=== PATIENT | male | born 1995 | race Two or more races ===

== ENCOUNTER 2023-02-10 21:03 | Emergency (ER) | payer OTHER ==
[2023-02-10 21:10] VITALS: BP 140/88; O2SAT 98
--- NOTE | 2023-02-10 21:15 | ED Physician Documentation ---
History of Present Illness - Stated complaint Stated Complaint: HYDROLIC FLUID VS RIGHT EYE - Chief complaint Chief Complaint: Heent - History obtained from History obtained from: Patient - History of Present Illness Timing: Today Pain level max: 0 Pain level now: 0 - Additonal information Additional information: 27-year-old male, [employer], presents to the emergency department after having hydraulic fluid splashed in his right eye today. It was irrigated for about 30 minutes prior to arrival. Patient is currently asymptomatic. Does not wear contacts or glasses. No vision changes. No headache. No complaints Review of Systems Constitutional: denies: Fever Eyes: denies: Photophobia PD PAST MEDICAL HISTORY - Past Medical History Past Medical History: No Cardiovascular: None Respiratory: None Neuro: None Endocrine/Autoimmune: None GI: None : None HEENT: None Psych: None Musculoskeletal: None Derm: None - Past Surgical History Past Surgical History: No - Allergies Allergies/Adverse Reactions: Allergies Allergy/AdvReac Type Severity Reaction Status Date / Time No Known Drug Allergies Allergy Verified 02/10/23 21:07 - Social History Does the pt smoke?: No Smoking Status: Never smoker Does the pt drink ETOH?: No Does the pt have substance abuse?: No - Immunizations Immunizations are current?: Yes PD ED PE NORMAL - Vitals Vital signs reviewed: Yes - General General: Alert and oriented X 3, No acute distress - HEENT HEENT: PERRL, EOMI, Moist mucous membranes, Other (Right eye has minimal conjunctival injection. No fluorescein uptake. Normal pH on pH paper testing. No ulcerations.) - Neck Neck: Supple, no meningeal sign - Derm Derm: Warm and dry - Neuro Neuro: Alert and oriented X 3 - Psych Psych: Normal mood, Normal affect Results - Vitals Vitals: Vital Signs - 24 hr 02/10/23 21:07 Temperature 36.8 C Heart Rate 77 Respiratory 16 Rate Blood Pressure 140/88 H O2 Saturation 98 Oxygen O2 Source Room air PD Medical Decision Making - ED course Complexity details: considered differential, d/w patient ED course: 27-year-old male with a chemical exposure to the eye. Normal pH. Was irrigated copiously prior to arrival. No abnormal fluorescein uptake. Normal vision. We will continue supportive care and have him follow-up with his doctor for further care. Patient counseled regarding signs and symptoms for which I believe and urgent re-evaluation would be necessary. Patient with good understanding of and agreement to plan and is comfortable going home at this time This document was made in part using voice recognition software. While efforts are made to proofread this document, sound alike and grammatical errors may occur. Patient does not wear contacts or glasses. Departure - Departure Disposition: Home, Self Care Clinical Impression: Chemical exposure of eye Condition: Good Instructions: ED Chemical Conjunctivitis Follow-Up: your,doctor as needed [Other] Comments: Your eye was irrigated and flushed with EMS. Your pH is normal. There is no abnormal uptake on staining. There is no evidence of ulceration. [place] Forms: PCP List Discharge Date/Time: 02/10/23 21:20
== END 2023-02-10 21:20 | disposition home or self-care (01) ==
LOC: ED 21:03
DX: Z77.098 Contact with and (suspected) exposure to other hazardous, chiefly nonmedicinal, chemicals (principal)
CPT/HCPCS: 99282; 99283